=== PATIENT | female | born 1955 | race African-American/Black ===

== ENCOUNTER 2017-08-24 15:48 | Inpatient (IN) | payer MEDICAID, OTHER ==
[~2017-08-24] VITALS: Ht 165.1 cm; Wt 97.5 kg
[~2017-08-24 15:48] MED LIST: BACL-141; DICL75TA5; FERR-63; GABA-290; LORA10TA7; METF500T4; OMEP20CA4; PRAV20TA57
[2017-08-24] MEDS ORDERED: MORPHINE SULFATE 4 MG/ML CPJ (NOT FOR IM USE) IV STA (20:44)
[2017-08-24] MEDS ORDERED: ONDANSETRON HCL 4MG/2ML VIAL IV STA (20:44)
[2017-08-24 21:06] LABS: BASOPHILS % 0.7 % (0.0-2.0); EOSINOPHILS % 3.7 % (0.0-5.0); HEMATOCRIT. 34.1 % (36.0-48.0); HEMOGLOBIN. 10.8 g/dL (12.0-16.0); LYMPHOCYTES % 23.5 % (20.0-50.0); MEAN CORPUSCULAR HEMOGLOBIN 24.2 pg (28.0-32.0); MEAN CORPUSCULAR VOLUME 76.9 fL (81.0-99.0); MEAN PLATELET VOLUME 8.7 fl (7.4-10.4); MONOCYTES % 5.8 % (2.0-8.0); NEUTROPHILS % 66.3 % (40.0-76.0); PLATELET 438 x1000/uL (130-400); RED BLOOD CELL COUNT 4.44 mill/uL (4.2-5.4); RED CELL DISTRIBUTION WIDTH 16.3 % (11.6-14.6)
[2017-08-24 21:13] LABS: INR 1.1; PROTHROMBIN TIME 11.4 sec (9.4-11.6)
[2017-08-24 21:25] LABS: CARBON DIOXIDE 27 mEq/L (21-32); CHLORIDE 105 mEq/L (98-107); TROPONIN I < 0.02 ng/mL (0.00-0.04)
[2017-08-24] MEDS ORDERED: TRAMADOL HCL/ACETAMINOPHEN 37.5/325MG TABLET PO ONE (22:15)
[2017-08-25] MEDS ORDERED: MORPHINE SULFATE 4 MG/ML CPJ (NOT FOR IM USE) IV ONE ×2 (02:00→10:00)
[2017-08-25] MEDS ORDERED: DEXTROSE 50% WATER 50ML SYRINGE IV PRN (10:00)
[2017-08-25] MEDS ORDERED: ONDANSETRON HCL 4MG/2ML VIAL IV PRN (10:00)
[2017-08-25] MEDS ORDERED: CLONIDINE 0.1MG TABLET PO PRN (10:00)
[2017-08-25] MEDS ORDERED: MORPHINE SULFATE 4 MG/ML CPJ (NOT FOR IM USE) IV PRN (10:00)
[2017-08-25] MEDS: AMLODIPINE 10MG TABLET PO SCH (11:00)
[2017-08-25] MEDS: BLOOD SUGAR DIAGNOSTIC STRIP TEST SCH ×3 (15:00→21:26)
[2017-08-25] MEDS: INSULIN LISPRO 100 UNITS/ML SUBCUT SCH ×3 (15:09→21:00)
[2017-08-25] MEDS: BACLOFEN 20MG TABLET PO SCH ×2 (15:11→21:23)
[2017-08-25 16:53] VITALS: BP 114/61
[2017-08-25 18:33] VITALS: BP 114/61
[2017-08-25 20:00] VITALS: BP 139/73
[2017-08-25] MEDS ORDERED: ATORVASTATIN CALCIUM 20MG TABLET PO SCH (21:00)
[2017-08-25] MEDS: HYDROCODONE/ACETAMINOPHEN 5/325MG TABLET PO PRN (21:24)
[2017-08-26] VITALS: BP 150/69
[2017-08-26] MEDS: HYDROCODONE/ACETAMINOPHEN 5/325MG TABLET PO PRN ×3 (01:34→09:50)
[2017-08-26 04:00] VITALS: BP 130/73
[2017-08-26] MEDS: BACLOFEN 20MG TABLET PO SCH ×2 (05:46→13:00)
[2017-08-26] MEDS: BLOOD SUGAR DIAGNOSTIC STRIP TEST SCH ×2 (06:27→12:20)
[2017-08-26] MEDS: INSULIN LISPRO 100 UNITS/ML SUBCUT SCH ×2 (07:20→12:54)
[2017-08-26 08:00] VITALS: BP 117/60
[2017-08-26] MEDS: AMLODIPINE 10MG TABLET PO SCH (08:29)
[2017-08-26] MEDS ORDERED: HYDR-4009 PO (11:42)
[2017-08-26] MEDS ORDERED: HYDROCODONE/ACETAMINOPHEN 10/325MG TABLET PO PRN (11:45)
[2017-08-26 12:00] VITALS: BP 134/65
[2017-08-26 14:01] VITALS: BP 134/65
== END 2017-08-26 15:38 | disposition home or self-care (01) | DRG 203 ==
LOC: ER 16:05 → 6EST 08-25 01:26 → ENRESERV 08-25 14:24 → ER 08-25 15:32
PROVIDERS: ADMIT Internal Medicine; ATTEND Internal Medicine
DX: M94.0 Chondrocostal junction syndrome [Tietze] (principal); E44.1 Mild protein-calorie malnutrition; I10 Essential (primary) hypertension; D64.9 Anemia, unspecified; E78.5 Hyperlipidemia, unspecified; E11.9 Type 2 diabetes mellitus without complications; M81.0 Age-related osteoporosis without current pathological fracture; Z96.652 Presence of left artificial knee joint; M25.551 Pain in right hip; Z96.642 Presence of left artificial hip joint; M19.90 Unspecified osteoarthritis, unspecified site; Z79.899 Other long term (current) drug therapy; Z68.35 Body mass index [BMI] 35.0-35.9, adult
CPT/HCPCS: 36415; 71045; 72192; 73502; 73562; 73700; 80053; 82962; 83880; 84484; 85025; 85610; 93005; 96374; 96375; 96376; 97162; 99285; J1815; J2270; J2405

== ENCOUNTER 2020-01-03 18:39 | Emergency (ER) | payer MEDICAID, OTHER ==
[~2020-01-03] VITALS: Ht 167.6 cm; Wt 91.0 kg
[~2020-01-03 18:39] MED LIST changes: +HYDR-4009 PO; +METF-414; -METF500T4
[2020-01-03] MEDS ORDERED: MAGNESIUM/ALUMINUM HYDROXIDE/SIMETHICONE 30ML UDC PO ONE (19:30)
[2020-01-03] MEDS ORDERED: VISCOUS LIDOCAINE 2% 15 ML UDC PO ONE (19:30)
[2020-01-03] MEDS ORDERED: GLUCAGON,HUMAN RECOMBINANT 1MG/VIAL IM ONE (23:15)
[2020-01-04 00:26] VITALS: BP 148/92
== END 2020-01-04 00:27 | disposition home or self-care (01) ==
LOC: ER 18:39
DX: T18.198A Other foreign object in esophagus causing other injury, initial encounter (principal); X58.XXXA Exposure to other specified factors, initial encounter; Y93.89 Activity, other specified; Y92.89 Other specified places as the place of occurrence of the external cause; Y99.8 Other external cause status; D64.9 Anemia, unspecified; E11.9 Type 2 diabetes mellitus without complications; I10 Essential (primary) hypertension; Z96.649 Presence of unspecified artificial hip joint; Z79.899 Other long term (current) drug therapy
CPT/HCPCS: 70360; 71045; 96372; 99284; J1610